=== PATIENT | female | born 1990 | race Caucasian/White ===

== ENCOUNTER → 2019-02-24 | Outpatient (CLI) | payer OTHER ==
[~2019-02-24] MED LIST: CEPH500 PO; IBUP600 PO
== END | disposition home or self-care (01) ==
LOC: LAB SHORT 16:45 → LAB 16:45
DX: O91.112 Abscess of breast associated with pregnancy, second trimester (principal)
CPT/HCPCS: 87070; 87075; 87205

== ENCOUNTER 2019-07-20 16:02 | Inpatient (IN) | payer OTHER ==
[~2019-07-20] VITALS: Ht 157.5 cm; Wt 70.0 kg
[~2019-07-20 16:02] MED LIST changes: +LIDO700A20 TOP; +PRENATAL TABLE1 EAC2 PO
[2019-07-20 18:17] LABS: BASOPHILS ABSOLUTE AUTO 0.02 K/mm3 (0.00-0.23); BASOPHILS PERCENT AUTO 0 % (0-2); EOSINOPHILS ABSOLUTE AUTO 0.15 K/mm3 (0.00-0.68); EOSINOPHILS PERCENT AUTO 1 % (0-6); Hematocrit 39.3 % (33.0-51.0); Hemoglobin 13.1 g/dL (11.5-16.0); IMMATURE GRAN ABSOLUTE AUTO 0.04 K/mm3 (0.00-0.10); IMMATURE GRAN PERCENT AUTO 0 % (0-1); LYMPHOCYTES ABSOLUTE AUTO 2.58 K/mm3 (0.84-5.20); LYMPHOCYTES PERCENT AUTO 23 % (21-46); MONOCYTES ABSOLUTE AUTO 0.75 K/mm3 (0.16-1.47); MONOCYTES PERCENT AUTO 7 % (4-13); Mean Corpuscular HGB Conc 33.3 g/dL (31.5-36.5); Mean Corpuscular Volume 90 fL (80-100); Mean Platelet Volume 11.7 fL (9.1-12.4); NEUTROPHILS ABSOLUTE AUTO 7.85 K/mm3 (1.96-9.15); NEUTROPHILS PERCENT AUTO 69 % (41-73); Platelet Count 247 K/mm3 (150-400); RDW Coefficient Variation 14.3 % (11.7-14.2); RDW Standard Deviation 47.2 fL (35.1-46.3); Red Blood Cell Count 4.36 M/mm3 (3.80-5.20); White Blood Cell Count 11.39 K/mm3 (4.00-11.30)
[2019-07-21 02:55] LABS: PCO2 Cord - Arterial 72.9 mmHg (40-50); pH Cord - Arterial 7.12 (7.28-7.35)
[2019-07-21 02:56] LABS: PO2 Cord - Arterial < 13 mmHg (16-20)
[2019-07-21 02:57] LABS: PCO2 Cord - Venous 71.8 mmHg (40-50); PO2 Cord - Venous < 13 mmHg (28-32); pH Umbilical Cord - Venous 7.13 (7.26-7.35)
[2019-07-21 13:51] LABS: BASOPHILS ABSOLUTE AUTO 0.03 K/mm3 (0.00-0.23); BASOPHILS PERCENT AUTO 0 % (0-2); EOSINOPHILS PERCENT AUTO 1 % (0-6); Hematocrit 36.5 % (33.0-51.0); Hemoglobin 12.3 g/dL (11.5-16.0); IMMATURE GRAN ABSOLUTE AUTO 0.05 K/mm3 (0.00-0.10); IMMATURE GRAN PERCENT AUTO 0 % (0-1); LYMPHOCYTES ABSOLUTE AUTO 2.47 K/mm3 (0.84-5.20); LYMPHOCYTES PERCENT AUTO 17 % (21-46); MONOCYTES ABSOLUTE AUTO 1.12 K/mm3 (0.16-1.47); MONOCYTES PERCENT AUTO 8 % (4-13); Mean Corpuscular HGB 30.4 pg (26.0-34.0); Mean Corpuscular HGB Conc 33.7 g/dL (31.5-36.5); Mean Corpuscular Volume 90 fL (80-100); Mean Platelet Volume 11.8 fL (9.1-12.4); NEUTROPHILS ABSOLUTE AUTO 10.82 K/mm3 (1.96-9.15); NEUTROPHILS PERCENT AUTO 74 % (41-73); Platelet Count 204 K/mm3 (150-400); RDW Coefficient Variation 14.2 % (11.7-14.2); RDW Standard Deviation 46.9 fL (35.1-46.3); Red Blood Cell Count 4.05 M/mm3 (3.80-5.20); White Blood Cell Count 14.59 K/mm3 (4.00-11.30)
[2019-07-22] MEDS ORDERED: IBUP800 PO (15:10)
== END 2019-07-22 18:35 | disposition home or self-care (01) | DRG 807 ==
LOC: OBS 16:02 → BC 16:45
PROVIDERS: ADMIT Family Medicine
PROC: 10D07Z6 Extraction of Products of Conception, Vacuum, Via Natural or Artificial Opening (ICD-10-PCS; principal; 2019-07-21)
PROC: 0KQM0ZZ Repair Perineum Muscle, Open Approach (ICD-10-PCS; 2019-07-21)
PROC: 3E033VJ Introduction of Other Hormone into Peripheral Vein, Percutaneous Approach (ICD-10-PCS; 2019-07-21)
DX: O76 Abnormality in fetal heart rate and rhythm complicating labor and delivery (principal); Z37.0 Single live birth; O70.1 Second degree perineal laceration during delivery; Z3A.39 39 weeks gestation of pregnancy
CPT/HCPCS: 36415; 51702; 82803; 85025; 86850; 86900; 86901; 87210; J0290; J2001; J3010; J7120

== ENCOUNTER 2020-10-07 14:27 | Observation (INO) | payer OTHER ==
[~2020-10-07] VITALS: Ht 157.5 cm; Wt 54.4 kg
[~2020-10-07 14:27] MED LIST changes: +IBUP800 PO
[2020-10-07 15:43] LABS: BASOPHILS ABSOLUTE AUTO 0.06 K/mm3 (0.00-0.23); BASOPHILS PERCENT AUTO 1 % (0-2); EOSINOPHILS ABSOLUTE AUTO 0.08 K/mm3 (0.00-0.68); EOSINOPHILS PERCENT AUTO 1 % (0-6); Hematocrit 45.1 % (33.0-51.0); Hemoglobin 15.1 g/dL (11.5-16.0); IMMATURE GRAN ABSOLUTE AUTO 0.06 K/mm3 (0.00-0.10); IMMATURE GRAN PERCENT AUTO 1 % (0-1); LYMPHOCYTES ABSOLUTE AUTO 3.25 K/mm3 (0.84-5.20); LYMPHOCYTES PERCENT AUTO 25 % (21-46); MONOCYTES ABSOLUTE AUTO 1.36 K/mm3 (0.16-1.47); MONOCYTES PERCENT AUTO 10 % (4-13); Mean Corpuscular HGB Conc 33.5 g/dL (31.5-36.5); Mean Corpuscular Volume 93 fL (80-100); Mean Platelet Volume 11.3 fL (9.1-12.4); NEUTROPHILS ABSOLUTE AUTO 8.47 K/mm3 (1.96-9.15); NEUTROPHILS PERCENT AUTO 64 % (41-73); Platelet Count 293 K/mm3 (150-400); RDW Coefficient Variation 12.6 % (11.7-14.2); RDW Standard Deviation 42.8 fL (35.1-46.3); Red Blood Cell Count 4.87 M/mm3 (3.80-5.20); White Blood Cell Count 13.28 K/mm3 (4.00-11.30)
[2020-10-07 15:57] LABS: Alanine Aminotransfer (ALT/SGP 19 U/L (12-78); Albumin, Blood 4.6 g/dL (3.4-5.0); Albumin/Globulin Ratio 1.2 (0.8-1.8); Alk Phos 49 U/L (50-136); Anion Gap 9 mmol/L (6-16); Aspartate Aminotrans (AST/SGOT 28 U/L (12-37); Bilirubin, Total 1.1 mg/dL (0.1-1.0); Blood Urea Nitrogen 18 mg/dL (8-24); CO2, Blood 24 mmol/L (21-32); Calcium, Blood 9.4 mg/dL (8.5-10.1); Chloride, Blood 103 mmol/L (98-108); Creatinine, Blood 0.69 mg/dL (0.40-1.00); Ethanol (Alcohol), Blood, Med <3 mg/dL; Globulin, Blood 3.7 g/dL (2.2-4.0); Glomerular Filtration Rate >60 (60-); Glucose, Blood 74 mg/dL (70-99); Potassium, Blood 3.7 mmol/L (3.5-5.5); Salicylate 2.6 mg/dL (2.8-20.0); Sodium, Blood 136 mmol/L (136-145); Total Protein, Blood 8.3 g/dL (6.4-8.2)
[2020-10-07 16:14] LABS: Acetaminophen, Random <2.0 ug/mL (10.0-30.0)
[2020-10-07 16:20] LABS: Source, Urine Clean Catch
[2020-10-07 16:24] LABS: Appearance, Urine Cloudy (Clear); Bilirubin, Urine Neg (Neg); Blood, Urine 3+ (Neg); Color, Urine Yellow (P-Yellow); Glucose Qualitative, Urine Neg (Neg); Ketones, Urine 4+ (Neg); Leukocyte Esterase, Urine 3+ (Neg); Nitrite, Urine Neg (Neg); Protein, Urine 2+ (Neg); Specific Gravity, Urine 1.025 (1.003-1.022); Urobilinogen, Urine 1+ (Normal)
[2020-10-07 16:43] LABS: SARS-Cov-2 (COVID-19) PCR, MMC NEGATIVE (NEGATIVE)
[2020-10-07 16:46] LABS: Bacteria Many /hpf; Squamous Epithelial Cells Many /hpf (Few)
[2020-10-07 17:01] LABS: U Amphetamine Screen Not Detected; U Barbituate Screen Not Detected; U Benzodiazapine Screen Not Detected; U Buprenorphine Screen Not Detected; U Cannabinoids Screen DETECTED; U Cocaine Screen Not Detected; U Methadone Screen Not Detected; U Methamphetamine Screen Not Detected; U Opiates Screen Not Detected; U Oxycodone Screen Not Detected; U Phencyclidine Screen Not Detected; U Propoxyphene Screen Not Detected
== END 2020-10-08 17:35 | disposition home or self-care (01) ==
LOC: ER 14:27 → EOR 14:28
PROVIDERS: Physician Assistant; ADMIT Emergency Medicine
DX: F29 Unspecified psychosis not due to a substance or known physiological condition (principal); Z20.822 Contact with and (suspected) exposure to COVID-19
CPT/HCPCS: 36415; 80053; 81001; 81025; 85025; 87086; 96372; 99285; A9270; G0378; G0480; J1200; J1630; J2060; Q3014; U0004

== ENCOUNTER 2022-02-10 10:13 | Emergency (ER) | payer OTHER ==
[~2022-02-10] VITALS: Ht 157.5 cm; Wt 68.0 kg
[~2022-02-10 10:13] MED LIST changes: +OLAN5 PO
[2022-02-10 10:35] LABS: Source, Urine Clean Catch
[2022-02-10 10:39] LABS: Appearance, Urine Hazy (Clear); Bilirubin, Urine Neg (Neg); Blood, Urine 4+ (Neg); Color, Urine Yellow (P-Yellow); Glucose Qualitative, Urine Neg (Neg); Ketones, Urine Neg (Neg); Leukocyte Esterase, Urine 1+ (Neg); Nitrite, Urine Neg (Neg); Protein, Urine 2+ (Neg); Urobilinogen, Urine NORM (Normal)
[2022-02-10 11:00] LABS: BASOPHILS ABSOLUTE AUTO 0.03 K/mm3 (0.00-0.23); BASOPHILS PERCENT AUTO 0 % (0-2); EOSINOPHILS ABSOLUTE AUTO 0.15 K/mm3 (0.00-0.68); EOSINOPHILS PERCENT AUTO 2 % (0-6); Hematocrit 44.6 % (33.0-51.0); Hemoglobin 14.8 g/dL (11.5-16.0); IMMATURE GRAN ABSOLUTE AUTO 0.03 K/mm3 (0.00-0.10); IMMATURE GRAN PERCENT AUTO 0 % (0-1); LYMPHOCYTES ABSOLUTE AUTO 2.42 K/mm3 (0.84-5.20); LYMPHOCYTES PERCENT AUTO 32 % (21-46); MONOCYTES PERCENT AUTO 9 % (4-13); Mean Corpuscular HGB 30.2 pg (26.0-34.0); Mean Corpuscular HGB Conc 33.2 g/dL (31.5-36.5); Mean Corpuscular Volume 91 fL (80-100); NEUTROPHILS ABSOLUTE AUTO 4.33 K/mm3 (1.96-9.15); NEUTROPHILS PERCENT AUTO 57 % (41-73); Platelet Count 268 K/mm3 (150-400); RDW Standard Deviation 43.6 fL (35.1-46.3); White Blood Cell Count 7.66 K/mm3 (4.00-11.30)
[2022-02-10 11:04] LABS: Bacteria Many /hpf; Red Blood Cells, Urine 0-2 /hpf (0-2); Squamous Epithelial Cells Many /hpf (Few)
[2022-02-10 11:05] LABS: Transitional Epithelial Cells Rare /hpf (0-Rare)
[2022-02-10 11:08] LABS: U Amphetamine Screen Not Detected; U Barbituate Screen Not Detected; U Benzodiazapine Screen Not Detected; U Buprenorphine Screen Not Detected; U Cannabinoids Screen DETECTED; U Cocaine Screen Not Detected; U Methadone Screen Not Detected; U Methamphetamine Screen Not Detected; U Opiates Screen Not Detected; U Oxycodone Screen Not Detected; U Phencyclidine Screen Not Detected; U Propoxyphene Screen Not Detected
[2022-02-10 11:17] LABS: Ethanol (Alcohol), Blood, Med <3 mg/dL; Salicylate 2.4 mg/dL (2.8-20.0)
[2022-02-10 11:19] LABS: Alanine Aminotransfer (ALT/SGP 27 U/L (12-78); Albumin/Globulin Ratio 1.1 (0.8-1.8); Alk Phos 45 U/L (50-136); Anion Gap 5 mmol/L (6-16); Aspartate Aminotrans (AST/SGOT 26 U/L (12-37); Bilirubin, Total 0.5 mg/dL (0.1-1.0); Blood Urea Nitrogen 15 mg/dL (8-24); Bun/Creatinine Ratio 25.4 (12.0-20.0); CO2, Blood 25 mmol/L (21-32); Calcium, Blood 8.9 mg/dL (8.5-10.1); Chloride, Blood 109 mmol/L (98-108); Creatinine, Blood 0.59 mg/dL (0.40-1.00); Globulin, Blood 3.5 g/dL (2.2-4.0); Glomerular Filtration Rate 124 (60-); Glucose, Blood 103 mg/dL (70-99); Potassium, Blood 4.2 mmol/L (3.5-5.5); Sodium, Blood 139 mmol/L (136-145); Total Protein, Blood 7.5 g/dL (6.4-8.2)
[2022-02-10 11:20] LABS: Acetaminophen, Random <2.0 ug/mL (10.0-30.0)
== END 2022-02-10 12:00 | disposition home or self-care (01) ==
LOC: ER 10:13
PROVIDERS: Emergency Medicine
DX: R45.851 Suicidal ideations (principal); T43.592A Poisoning by other antipsychotics and neuroleptics, intentional self-harm, initial encounter
CPT/HCPCS: 36415; 80053; 81001; 81025; 85025; 87086; 93005; 93010; G0480

== ENCOUNTER 2022-02-27 15:16 | Emergency (ER) | payer OTHER ==
[~2022-02-27] VITALS: Ht 157.5 cm; Wt 63.5 kg
[2022-02-27] MEDS ORDERED: RISP1 PO (17:03)
== END 2022-02-27 17:40 | disposition home or self-care (01) ==
LOC: ER 15:16
DX: F20.9 Schizophrenia, unspecified (principal); F17.290 Nicotine dependence, other tobacco product, uncomplicated; Z79.899 Other long term (current) drug therapy
CPT/HCPCS: 99283-25; Q3014

== ENCOUNTER 2022-03-30 10:17 | Emergency (ER) | payer OTHER ==
[~2022-03-30] VITALS: Ht 157.5 cm; Wt 65.8 kg
[~2022-03-30 10:17] MED LIST changes: +RISP1 PO
[2022-03-30 11:41] LABS: BASOPHILS ABSOLUTE AUTO 0.01 K/mm3 (0.00-0.23); BASOPHILS PERCENT AUTO 0 % (0-2); EOSINOPHILS ABSOLUTE AUTO 0.54 K/mm3 (0.00-0.68); EOSINOPHILS PERCENT AUTO 9 % (0-6); Hematocrit 42.5 % (33.0-51.0); Hemoglobin 14.1 g/dL (11.5-16.0); IMMATURE GRAN ABSOLUTE AUTO 0.01 K/mm3 (0.00-0.10); IMMATURE GRAN PERCENT AUTO 0 % (0-1); LYMPHOCYTES ABSOLUTE AUTO 1.28 K/mm3 (0.84-5.20); LYMPHOCYTES PERCENT AUTO 22 % (21-46); MONOCYTES ABSOLUTE AUTO 0.53 K/mm3 (0.16-1.47); MONOCYTES PERCENT AUTO 9 % (4-13); Mean Corpuscular HGB 29.9 pg (26.0-34.0); Mean Corpuscular HGB Conc 33.2 g/dL (31.5-36.5); Mean Corpuscular Volume 90 fL (80-100); Mean Platelet Volume 10.7 fL (9.1-12.4); NEUTROPHILS ABSOLUTE AUTO 3.55 K/mm3 (1.96-9.15); NEUTROPHILS PERCENT AUTO 60 % (41-73); Platelet Count 230 K/mm3 (150-400); RDW Coefficient Variation 12.6 % (11.7-14.2); RDW Standard Deviation 41.7 fL (35.1-46.3); Red Blood Cell Count 4.71 M/mm3 (3.80-5.20); White Blood Cell Count 5.92 K/mm3 (4.00-11.30)
[2022-03-30 11:57] LABS: Alanine Aminotransfer (ALT/SGP 17 U/L (12-78); Albumin, Blood 3.8 g/dL (3.4-5.0); Albumin/Globulin Ratio 1.1 (0.8-1.8); Alk Phos 46 U/L (50-136); Anion Gap 4 mmol/L (6-16); Aspartate Aminotrans (AST/SGOT 16 U/L (12-37); Bilirubin, Total 0.3 mg/dL (0.1-1.0); Blood Urea Nitrogen 7 mg/dL (8-24); Bun/Creatinine Ratio 12.5 (12.0-20.0); C-REACTIVE PROTEIN, EXT RANGE <0.290 mg/dL (0.000-0.300); CO2, Blood 29 mmol/L (21-32); Calcium, Blood 8.7 mg/dL (8.5-10.1); Chloride, Blood 104 mmol/L (98-108); Creatinine, Blood 0.56 mg/dL (0.40-1.00); Globulin, Blood 3.6 g/dL (2.2-4.0); Glomerular Filtration Rate 126 (60-); Glucose, Blood 98 mg/dL (70-99); Potassium, Blood 3.8 mmol/L (3.5-5.5); Sodium, Blood 137 mmol/L (136-145); Total Protein, Blood 7.4 g/dL (6.4-8.2)
[2022-03-30] MEDS ORDERED: Prednisone20 MG PO (22:51)
== END 2022-03-30 11:48 | disposition left against medical advice (07) ==
LOC: ER 10:17
PROVIDERS: Physician Assistant
DX: R21 Rash and other nonspecific skin eruption (principal); Z53.21 Procedure and treatment not carried out due to patient leaving prior to being seen by health care provider
CPT/HCPCS: 36415; 80053; 85025; 86140

== ENCOUNTER 2022-07-15 19:59 | Emergency (ER) | payer OTHER ==
[~2022-07-15] VITALS: Ht 157.5 cm; Wt 68.0 kg
[~2022-07-15 19:59] MED LIST changes: +Prednisone20 MG PO
[2022-07-15 20:04] VITALS: BP 126/87
== END 2022-07-15 20:25 | disposition left against medical advice (07) ==
LOC: ER 19:59
DX: R20.0 Anesthesia of skin (principal); Z53.21 Procedure and treatment not carried out due to patient leaving prior to being seen by health care provider
CPT/HCPCS: 99282

== ENCOUNTER → 2022-09-12 | Outpatient (CLI) | payer OTHER ==
[2022-09-12 19:47] LABS: BASOPHILS ABSOLUTE AUTO 0.03 K/mm3 (0.00-0.23); BASOPHILS PERCENT AUTO 0 % (0-2); EOSINOPHILS ABSOLUTE AUTO 0.25 K/mm3 (0.00-0.68); EOSINOPHILS PERCENT AUTO 3 % (0-6); Hematocrit 42.8 % (33.0-51.0); Hemoglobin 13.9 g/dL (11.5-16.0); IMMATURE GRAN ABSOLUTE AUTO 0.06 K/mm3 (0.00-0.10); IMMATURE GRAN PERCENT AUTO 1 % (0-1); LYMPHOCYTES PERCENT AUTO 28 % (21-46); MONOCYTES ABSOLUTE AUTO 0.73 K/mm3 (0.16-1.47); MONOCYTES PERCENT AUTO 8 % (4-13); Mean Corpuscular HGB 29.2 pg (26.0-34.0); Mean Corpuscular HGB Conc 32.5 g/dL (31.5-36.5); Mean Corpuscular Volume 90 fL (80-100); Mean Platelet Volume 10.9 fL (9.1-12.4); NEUTROPHILS ABSOLUTE AUTO 5.28 K/mm3 (1.96-9.15); NEUTROPHILS PERCENT AUTO 60 % (41-73); Platelet Count 353 K/mm3 (150-400); RDW Coefficient Variation 12.5 % (11.7-14.2); RDW Standard Deviation 41.3 fL (35.1-46.3); Red Blood Cell Count 4.76 M/mm3 (3.80-5.20); White Blood Cell Count 8.85 K/mm3 (4.00-11.30)
[2022-09-12 20:12] LABS: Alanine Aminotransfer (ALT/SGP 20 U/L (12-78); Albumin, Blood 4.1 g/dL (3.4-5.0); Albumin/Globulin Ratio 1.1 (0.8-1.8); Alk Phos 51 U/L (50-136); Anion Gap 9 mmol/L (6-16); Aspartate Aminotrans (AST/SGOT 17 U/L (12-37); Bilirubin, Total 0.5 mg/dL (0.1-1.0); Blood Urea Nitrogen 10 mg/dL (8-24); Bun/Creatinine Ratio 13.1 (12.0-20.0); CHOL/HDL RATIO 3.8; CO2, Blood 25 mmol/L (21-32); Calcium, Blood 9.6 mg/dL (8.5-10.1); Chloride, Blood 104 mmol/L (98-108); Cholesterol 199 mg/dL (50-200); Creatinine, Blood 0.76 mg/dL (0.40-1.00); Free Thyroxine 1.04 ng/dL (0.70-1.60); Globulin, Blood 3.8 g/dL (2.2-4.0); Glomerular Filtration Rate 107 (60-); Glucose, Blood 87 mg/dL (70-99); HDL Cholesterol 53 mg/dL (>39); LDL/HDL RATIO 2.2; Low Density Lipoprotein Chol 118 mg/dL (0-110); Sodium, Blood 138 mmol/L (136-145); Total Protein, Blood 7.9 g/dL (6.4-8.2); Triglycerides 139 mg/dL (30-140); Triiodothyronine, Free 2.68 pg/mL (2.18-3.98); Very Low Density Lipoprot Chol 27 mg/dL (6-28)
== END | disposition home or self-care (01) ==
LOC: LAB SHORT 16:55 → LAB 16:55
PROVIDERS: Family Medicine
DX: E66.9 Obesity, unspecified (principal)
CPT/HCPCS: 80053; 80061; 82306; 84439; 84443; 84481; 85025

== ENCOUNTER → 2024-06-18 | Outpatient (CLI) | payer OTHER ==
[2024-06-18 14:08] LABS: Source, Urine Clean Catch
[2024-06-18 16:48] LABS: Bacteria Many /hpf; Calcium Oxalate Crystals Mod /hpf; Hyaline Casts 0-2 /lpf (0-2); Mucus Light (0-Heavy); Red Blood Cells, Urine 0-2 /hpf (0-2); Squamous Epithelial Cells Many /hpf (Few)
[2024-06-18 17:06] LABS: U Amphetamine Screen Not Detected; U Barbituate Screen Not Detected; U Benzodiazapine Screen Not Detected; U Buprenorphine Screen Not Detected; U Cannabinoids Screen DETECTED; U Cocaine Screen Not Detected; U Methadone Screen Not Detected; U Methamphetamine Screen Not Detected; U Opiates Screen Not Detected; U Oxycodone Screen Not Detected; U Phencyclidine Screen Not Detected
[2024-06-18 17:13] LABS: Bacterial Vaginosis PCR Negative (NEGATIVE); Candida glabrata-krusei, PCR NOT DETECTED (NOT DETECT)
[2024-06-18 17:46] LABS: Chlamydia Trachomatis Vaginal NOT DETECTED (NOT DETECT); Neisseria Gonorrhoea Vaginal NOT DETECTED (NOT DETECT)
[2024-06-18 18:01] LABS: Candida Group, PCR DETECTED (NOT DETECT)
[2024-06-21 07:09] LABS: 11-NOR-9-CARBOXY-THC,URN,QUANT >500 ng/mL
== END | disposition home or self-care (01) ==
LOC: LAB 14:03 → LAB SHORT 14:03
PROVIDERS: Advanced Practice Midwife
DX: O23.591 Infection of other part of genital tract in pregnancy, first trimester (principal)
CPT/HCPCS: 81015; 81515; 87086; 87491; 87591; G0480

== ENCOUNTER 2024-07-17 09:58 | Emergency (ER) | payer OTHER ==
[~2024-07-17] VITALS: Ht 157.5 cm; Wt 70.3 kg
[2024-07-17] MEDS ORDERED: Acetaminophen 500 MG Tab PO ONE (10:55)
[2024-07-17] MEDS ORDERED: Metoclopramide HCl 10 MG Tab PO ONE (10:55)
[2024-07-17] MEDS ORDERED: METO10 PO (13:07)
[2024-07-17 13:45] VITALS: BP 120/62
== END 2024-07-17 13:54 | disposition home or self-care (01) ==
LOC: ER 09:58
DX: O9A.212 Injury, poisoning and certain other consequences of external causes complicating pregnancy, second trimester (principal); Z3A.16 16 weeks gestation of pregnancy; Z88.8 Allergy status to other drugs, medicaments and biological substances; Z79.899 Other long term (current) drug therapy; F17.290 Nicotine dependence, other tobacco product, uncomplicated; W22.8XXA Striking against or struck by other objects, initial encounter
CPT/HCPCS: 70260; 99284-25; A9270

== ENCOUNTER → 2024-10-20 | Outpatient (CLI) | payer OTHER ==
[~2024-10-20] MED LIST changes: +METO10 PO
[2024-10-20 17:59] LABS: BASOPHILS ABSOLUTE AUTO 0.03 K/mm3 (0.00-0.23); BASOPHILS PERCENT AUTO 0 % (0-2); EOSINOPHILS ABSOLUTE AUTO 0.14 K/mm3 (0.00-0.68); EOSINOPHILS PERCENT AUTO 1 % (0-6); Hematocrit 35.5 % (33.0-51.0); Hemoglobin 11.7 g/dL (11.5-16.0); IMMATURE GRAN ABSOLUTE AUTO 0.09 K/mm3 (0.00-0.10); IMMATURE GRAN PERCENT AUTO 1 % (0-1); LYMPHOCYTES ABSOLUTE AUTO 2.38 K/mm3 (0.84-5.20); LYMPHOCYTES PERCENT AUTO 22 % (21-46); MONOCYTES ABSOLUTE AUTO 0.73 K/mm3 (0.16-1.47); MONOCYTES PERCENT AUTO 7 % (4-13); Mean Corpuscular HGB Conc 33.0 g/dL (31.5-36.5); Mean Corpuscular Volume 92 fL (80-100); NEUTROPHILS ABSOLUTE AUTO 7.49 K/mm3 (1.96-9.15); NEUTROPHILS PERCENT AUTO 69 % (41-73); NRBC ABSOLUTE 0.00 K/mm3 (0.00-0.02); NRBC Auto 0.0 /100 WBC (0.0-0.2); Platelet Count 276 K/mm3 (150-400); RDW Coefficient Variation 13.1 % (11.7-14.2); RDW Standard Deviation 43.6 fL (35.1-46.3)
[2024-10-21 18:23] LABS: HEPATITIS C AB CIA INTERP Negative (Negative); HEPATITIS C ANTIBODY CIA INDEX 0.02 IV
[2024-10-21 20:50] LABS: HIV 1,2 COMBO ANTIGEN/ANTIBODY Negative (Negative)
== END ==
LOC: LAB 13:23 → LAB SHORT 13:23
PROVIDERS: Advanced Practice Midwife
DX: Z34.83 Encounter for supervision of other normal pregnancy, third trimester (principal)
CPT/HCPCS: 84443; 86803; 87340; 87389

== ENCOUNTER 2025-01-02 07:18 | Inpatient (IN) | payer OTHER ==
[~2025-01-02] VITALS: Ht 157.5 cm; Wt 68.2 kg
[2025-01-02] VITALS (34 sets, daily range): BP systolic 99–165; BP diastolic 56–130
[2025-01-02] MEDS ORDERED: Carboprost Tromethamine 250 MCG/ML 1ML Amp IM PRN (07:25)
[2025-01-02] MEDS ORDERED: Tranexamic Acid 100 ML IV SCH (07:25)
[2025-01-02] MEDS ORDERED: Methylergonovine Maleate 0.2MG / ML 1ML Amp IM PRN ×2 (07:25→15:40)
[2025-01-02] MEDS ORDERED: OXYTOCIN/RINGER'S LACTATE 500 ML IV SCH ×2 (07:25→15:45)
[2025-01-02] MEDS ORDERED: OXYTOCIN/RINGER'S LACTATE 500 ML IV PRN (07:25)
[2025-01-02] MEDS ORDERED: Oxytocin 10 Unit / ML Vial IM PRN (07:25)
[2025-01-02] MEDS ORDERED: ePHEDrine Sulfate 50 MG/ML 1ML Injection XX PRN (07:30)
[2025-01-02] MEDS ORDERED: FentaNYL 2mcg/ml-Bup 0.1% Epd 250 ML EPI PRN (07:30)
[2025-01-02] MEDS ORDERED: FentaNYL Citrate 50 MCG/ML 2 ML Injection IV PRN (07:30)
[2025-01-02] MEDS ORDERED: Ondansetron HCl 2 MG / ML 2ML Vial IV PRN (07:30)
[2025-01-02 08:01] LABS: BASOPHILS ABSOLUTE AUTO 0.02 K/mm3 (0.00-0.23); BASOPHILS PERCENT AUTO 0 % (0-2); EOSINOPHILS ABSOLUTE AUTO 0.08 K/mm3 (0.00-0.68); EOSINOPHILS PERCENT AUTO 1 % (0-6); Hematocrit 37.0 % (33.0-51.0); Hemoglobin 12.5 g/dL (11.5-16.0); IMMATURE GRAN ABSOLUTE AUTO 0.02 K/mm3 (0.00-0.10); IMMATURE GRAN PERCENT AUTO 0 % (0-1); LYMPHOCYTES ABSOLUTE AUTO 1.76 K/mm3 (0.84-5.20); LYMPHOCYTES PERCENT AUTO 23 % (21-46); MONOCYTES ABSOLUTE AUTO 0.52 K/mm3 (0.16-1.47); MONOCYTES PERCENT AUTO 7 % (4-13); Mean Corpuscular HGB Conc 33.8 g/dL (31.5-36.5); Mean Corpuscular Volume 85 fL (80-100); NEUTROPHILS ABSOLUTE AUTO 5.13 K/mm3 (1.96-9.15); NEUTROPHILS PERCENT AUTO 68 % (41-73); NRBC ABSOLUTE 0.00 K/mm3 (0.00-0.02); NRBC Auto 0.0 /100 WBC (0.0-0.2); Platelet Count 253 K/mm3 (150-400); RDW Coefficient Variation 12.8 % (11.7-14.2); RDW Standard Deviation 39.8 fL (35.1-46.3)
[2025-01-02] MEDS ORDERED: PRENATAL 19 TA1 EAC3 PO (08:06)
[2025-01-02] MEDS ORDERED: Witch Hazel/Glycerin PADS TOP PRN (15:40)
[2025-01-02] MEDS ORDERED: FLU VACC TS2025-26(6MOS UP)/PF 45 MCG/0.5 ML SYRINGE IM SCH (15:40)
[2025-01-02] MEDS ORDERED: OxyCODONE 5 mg/Acetamin 325 mg TABLET PO PRN (15:45)
[2025-01-02] MEDS ORDERED: Ketorolac Tromethamine 30mg Vial IV PRN (15:45)
[2025-01-02] MEDS ORDERED: Benzocaine Topical Anesthetic Spray 60GM TOP PRN (15:50)
--- NOTE | 2025-01-02 15:52 | NUR ---
154 INACCURATE BLOOD PRESSURE DUE TO MATERAL MOVEMENT DURING READING
--- NOTE | 2025-01-02 19:58 | NUR ---
1954- RN phone call to ZACKARY Watts with concerns with pt having a large softball/grapefruit sized lump on her left upper quadrant under her ribs. The lump is hard when palpated and can be seen protruding out. Pt states it is not painful at this time. RN expresses her concerns for this lump being present. Pt states that she thought it was a hernia and has had it for a couple weeks and even called [facility] and Dr Jalloh was notified but never got looked at. ZACKARY Watts is unsure what this lump could be and states she will try and contact Dr. anderson to get her opinion or try and send a resident to come look at it.
[2025-01-03 00:41] VITALS: BP 121/72
[2025-01-03 05:10] VITALS: BP 116/72
[2025-01-03 08:32] VITALS: BP 123/67
[2025-01-03] MEDS ORDERED: Prenatal Vit/FE Fumarate/FA 1 Tab PO SCH (09:00)
--- NOTE | 2025-01-03 09:26 | NUR ---
0907 GUERO NOTIFIED OF EPDS SCORE OF 17.
[2025-01-03 13:41] VITALS: BP 130/73
[2025-01-03] MEDS ORDERED: MOTRIN IB200 MG PO (14:57)
[2025-01-03 16:33] VITALS: BP 114/77
== END 2025-01-03 16:53 | disposition home or self-care (01) | DRG 806 ==
LOC: OBS 07:18 → BC 07:21 → OBS 07:27 → BC 21:18
PROVIDERS: ADMIT Advanced Practice Midwife
PROC: 10E0XZZ Delivery of Products of Conception, External Approach (ICD-10-PCS; principal; 2025-01-02)
PROC: 10907ZC Drainage of Amniotic Fluid, Therapeutic from Products of Conception, Via Natural or Artificial Opening (ICD-10-PCS; 2025-01-02)
PROC: 0HQ9XZZ Repair Perineum Skin, External Approach (ICD-10-PCS; 2025-01-02)
PROC: 3E0R3BZ Introduction of Anesthetic Agent into Spinal Canal, Percutaneous Approach (ICD-10-PCS; 2025-01-02)
PROC: 00HU33Z Insertion of Infusion Device into Spinal Canal, Percutaneous Approach (ICD-10-PCS; 2025-01-02)
DX: O48.0 Post-term pregnancy (principal); O99.324 Drug use complicating childbirth; Z37.0 Single live birth; Z59.811 Housing instability, housed, with risk of homelessness; Z3A.40 40 weeks gestation of pregnancy; F12.90 Cannabis use, unspecified, uncomplicated; D25.9 Leiomyoma of uterus, unspecified; O70.0 First degree perineal laceration during delivery; O65.5 Obstructed labor due to abnormality of maternal pelvic organs; Z39.1 Encounter for care and examination of lactating mother; Z13.32 Encounter for screening for maternal depression; Z28.21 Immunization not carried out because of patient refusal
CPT/HCPCS: 36415; 51702; 76857; 85025; 86850; 86900; 86901; A9270; J1885; J2405; J2590; J7120

== ENCOUNTER 2025-02-25 06:28 | Emergency (ER) | payer OTHER ==
[~2025-02-25] VITALS: Ht 157.5 cm; Wt 58.1 kg
[~2025-02-25 06:28] MED LIST changes: +MOTRIN IB200 MG PO; +PRENATAL 19 TA1 EAC3 PO
[2025-02-25 06:34] VITALS: BP 112/82
== END 2025-02-25 06:53 | disposition home or self-care (01) ==
LOC: ER 06:28
DX: F20.9 Schizophrenia, unspecified (principal); F22 Delusional disorders
CPT/HCPCS: 99282

== ENCOUNTER 2025-03-01 18:08 | Observation (INO) | payer OTHER ==
[~2025-03-01] VITALS: Ht 157.5 cm; Wt 56.7 kg
[2025-03-01 18:58] LABS: Source, Urine Voided
[2025-03-01 19:04] LABS: Bilirubin, Urine Neg (Neg); Glucose Qualitative, Urine Neg (Neg); Ketones, Urine Neg (Neg); Leukocyte Esterase, Urine Neg (Neg); Protein, Urine Neg (Neg); Specific Gravity, Urine 1.005 (1.003-1.022); Urobilinogen, Urine NORM (Normal)
[2025-03-01 19:12] LABS: BASOPHILS ABSOLUTE AUTO 0.05 K/mm3 (0.00-0.23); BASOPHILS PERCENT AUTO 0 % (0-2); EOSINOPHILS ABSOLUTE AUTO 0.12 K/mm3 (0.00-0.68); EOSINOPHILS PERCENT AUTO 1 % (0-6); Hematocrit 41.1 % (33.0-51.0); Hemoglobin 13.6 g/dL (11.5-16.0); IMMATURE GRAN ABSOLUTE AUTO 0.03 K/mm3 (0.00-0.10); IMMATURE GRAN PERCENT AUTO 0 % (0-1); LYMPHOCYTES ABSOLUTE AUTO 3.06 K/mm3 (0.84-5.20); LYMPHOCYTES PERCENT AUTO 23 % (21-46); MONOCYTES ABSOLUTE AUTO 1.32 K/mm3 (0.16-1.47); MONOCYTES PERCENT AUTO 10 % (4-13); Mean Corpuscular HGB Conc 33.1 g/dL (31.5-36.5); Mean Corpuscular Volume 86 fL (80-100); NEUTROPHILS ABSOLUTE AUTO 9.03 K/mm3 (1.96-9.15); NEUTROPHILS PERCENT AUTO 66 % (41-73); NRBC ABSOLUTE 0.00 K/mm3 (0.00-0.02); NRBC Auto 0.0 /100 WBC (0.0-0.2); Platelet Count 368 K/mm3 (150-400); RDW Coefficient Variation 14.6 % (11.7-14.2); RDW Standard Deviation 47.0 fL (35.1-46.3)
[2025-03-01 19:21] VITALS: BP 108/73
[2025-03-01 19:21] LABS: Color, Urine Pale Yellow (P-Yellow)
[2025-03-01 19:22] LABS: Red Blood Cells, Urine 0-2 /hpf (0-2); White Blood Cells, Urine 0-2 /hpf (0-5)
[2025-03-01 19:30] LABS: Ethanol (Alcohol), Blood, Med <3 mg/dL; Salicylate 2.9 mg/dL (2.8-20.0)
[2025-03-01 19:34] LABS: Alanine Aminotransfer (ALT/SGP 28 U/L (12-78); Albumin, Blood 4.4 g/dL (3.4-5.0); Albumin/Globulin Ratio 1.4 (0.8-1.8); Anion Gap 10 mmol/L (3-11); Aspartate Aminotrans (AST/SGOT 57 U/L (12-37); Bilirubin, Total 1.0 mg/dL (0.1-1.0); Blood Urea Nitrogen 8 mg/dL (8-24); CO2, Blood 26 mmol/L (21-32); Calcium, Blood 9.8 mg/dL (8.5-10.1); Chloride, Blood 104 mmol/L (98-108); Creatinine, Blood 0.69 mg/dL (0.40-1.00); Globulin, Blood 3.2 g/dL (2.2-4.0); Glucose, Blood 86 mg/dL (70-99); Potassium, Blood 4.0 mmol/L (3.5-5.5); Sodium, Blood 136 mmol/L (136-145); Total Protein, Blood 7.6 g/dL (6.4-8.2)
[2025-03-01 19:35] LABS: Acetaminophen, Random <2.0 ug/mL (10.0-30.0)
[2025-03-01] MEDS ORDERED: Diazepam 5 MG / ML 2ML SYR IM PRN (20:20)
[2025-03-01 22:25] LABS: U Amphetamine Screen Not Detected; U Barbiturate Screen Not Detected; U Benzodiazapine Screen Not Detected; U Buprenorphine Screen Not Detected; U Cannabinoids Screen DETECTED; U Cocaine Screen Not Detected; U Methadone Screen Not Detected; U Methamphetamine Screen Not Detected; U Opiates Screen Not Detected; U Oxycodone Screen Not Detected; U Phencyclidine Screen Not Detected
[2025-03-02] MEDS ORDERED: Haloperidol Lactate Inj. 5 MG/ML Injection IM ONE ×2 (01:10→06:50)
[2025-03-02] MEDS ORDERED: LORazepam 2 MG/ML 1ML Injection IM ONE (01:10)
[2025-03-02] MEDS ORDERED: LORazepam 2 MG/ML 1ML Injection IM PRN (06:50)
== END 2025-03-02 15:55 | disposition other institution (70) ==
LOC: ER 18:08 → EOR 18:09 → EDBEDREQ 03-02 15:18 → EDBEDREQSVC 03-02 15:18 → EDBEDREQ 03-02 15:23 → EOR 03-02 15:55
PROVIDERS: ADMIT Emergency Medicine
DX: F20.9 Schizophrenia, unspecified (principal); R45.850 Homicidal ideations; F17.290 Nicotine dependence, other tobacco product, uncomplicated; Z88.8 Allergy status to other drugs, medicaments and biological substances
CPT/HCPCS: 71045; 80053; 80320; 81001; 81025; 84484; 85025; 93005; 93010; 96372; 99285-25; G0378; G0480; J1630; J2060; J3360

== ENCOUNTER 2025-03-02 14:48 | Inpatient (IN) | payer OTHER ==
[~2025-03-02] VITALS: Ht 157.5 cm; Wt 53.8 kg
[2025-03-02 16:16] VITALS: BP 116/73
[2025-03-02 16:27] VITALS: BP 116/73
[2025-03-02] MEDS ORDERED: Aluminum Hydroxide 320MG/5ML 473 ML PO PRN (16:35)
[2025-03-02] MEDS ORDERED: Ondansetron 4 MG SoluTab MM PRN (16:40)
[2025-03-02] MEDS ORDERED: Polyethylene Glycol 3350 17 gm PO PRN (16:40)
[2025-03-02] MEDS ORDERED: LORazepam 2 MG/ML 1ML Injection IM PRN (16:40)
[2025-03-02] MEDS ORDERED: FLU VACC TS2025-26(6MOS UP)/PF 45 MCG/0.5 ML SYRINGE IM SCH (16:45)
[2025-03-02] MEDS ORDERED: Haloperidol Lactate Inj. 5 MG/ML Injection IM PRN (16:45)
[2025-03-02] MEDS ORDERED: DiphenhydrAMINE HCl 50 MG/ML 1ML Vial IM PRN (16:45)
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
--- NOTE | 2025-03-03 00:11 | NUR ---
MID-SHIFT SUMMARY 34 YEAR-OLD FEMALE PRESENTS WELL GROOMED. SHE IS ALERT AND ORIENTED. SHE SPEAKS IN A CLEAR VOICE AND IN AN APPROPRIATE VOLUME. SHE IS ABLE TO MAKE AND KEEP EYE CONTACT DURING CONVERSATIONS. AT THE TIME OF HER ASSESSMENT, SHE DESCRIBED HER MOOD "YOU'RE KEEPING ME HERE AGAINST MY WILL." SHE IS AN INVOLUTARY ADMISSION FROM [facility] ED. SHE CONTINUES TO SHOW LITTLE TO NO INSIGHT INTO HER SITUATION OR MENTAL ILLNESS. HER AFFECT IS LABILE, RANGING FROM CALM AND COOPERATIVE TO NEAR PANIC ABOUT NEEDING TO LEAVE FOR HER [place] COURT DATE. THE NURSE AT THE ED VERIFIED THAT THERE ARE NO COURT DATES FOR HER TO ATTEND IN THE NEXT WEEK. SHE ALSO DENIED SI, HI, AND AVTH AT THAT TIME. SHE REFUSED TO ATTEND SNACK OR DAY ROOM. SHE OPTED TO STAY IN BED. CURRENTLY, NO PM MEDICATIONS HAVE BEEN PRESCRIBED. SHE DID NOT RECEIVE ANY PRN MEDICATIONS. SHE CONTINUES TO BE MONITORED EVERY 15 MINUTES FOR WELLNESS AND SAFETY.
--- NOTE | 2025-03-03 00:53 | NUR ---
Assumed care of patient at 0055. Patient currently sleeping. Respirations verified. Will continue close monitoring every 15 minutes for safety and wellness per unit protocol.
--- NOTE | 2025-03-03 06:03 | NUR ---
PATIENT WAS ABLE TO SLEEP UNTIL APPROXIMATELY 30 WHEN SHE CAME OUT OF ROOM DISTRAUGHT AND YELLING ABOUT MISSING HER COURT DATE (ON SUNDAY). aFTER LOOKING IN THE ER RECORD, THE DATE OF HER COURT APPOINTMENT IS March ACCORDING TO THE COURT. PATIENT THEN GOT VERY UPSET YELLING AT THE STAFF. WHEN A COMBINATION OF BENEDRYL, ATIVAN AND HALDOL WERE OFFERED TO THE PATIENT, SHE REFUSED AND ONLY TOOK THE BENEDRYL. PATIENT AGREED TO KEEP HER VOICE DOWN ESPECIALLY WHILE OTHERS WERE SLEEPING. WILL CONTINUE CLOSE MONITORING FOR SAFETY AND COMFORT EVERY 15 MINUTES PER UNIT PROTOCOL
[2025-03-03 07:58] LABS: CHOL/HDL RATIO 2.7; Cholesterol 190 mg/dL (50-200); HDL Cholesterol 71 mg/dL (>39); LDL/HDL RATIO 1.5; Low Density Lipoprotein Chol 107 mg/dL (0-110); Triglycerides 58 mg/dL (30-140); Very Low Density Lipoprot Chol 11 mg/dL (6-28)
[2025-03-03] MEDS ORDERED: Multivitamins 1 Tab PO SCH (09:00)
--- NOTE | 2025-03-03 09:17 | NUR ---
IMPORTANT INFORMATION PATIENT HAS COURT DATE = 03/10/25. HER CHILD INSTITUTIONAL RESEARCH COORDINATOR IS ANDREA SORIANO AND SHE CAN BE REACHD AT .
--- NOTE | 2025-03-03 18:37 | NUR ---
PRN MEDICATION ADMINISTRATION PT AGITATED, RAISING VOICE AT STAFF, AND MAKING OBSCENE GESTURES AT STAFF. SECURITY CALLED AND PT RECEIVED INJECTION OF BENEDRYL, HALDOL, AND ATIVAN. MASS SCORE COMPLETED. PLEASE SEE MASS DOCUMENTATION.
[2025-03-03] MEDS ORDERED: Lactobacil 2-S.Thermo-Bifido 1 1 Cap PO SCH (21:00)
--- NOTE | 2025-03-04 04:30 | NUR ---
SHIFT SUMMARY: PATIENT IS A 34 YEAR OLD FEMALE ADMITTED TO THE [facility] WITH PSYCHOSIS ON 03/02/25. THE SHIFT WAS CHANGING AND REPORT NEARLY STARTED, PATIENT BEGAN TO ESCALATE, SHOUTING OBSCENITIES AT STAFF REGARDING BEING "HELD PRISONER" AND HOW SHE IS GOING TO "PRESS CHARGES AND SCOTTY YOU ALL!". PATIENT WAS UNABLE TO CALM SELF AND STAFF WERE UNABLE TO HELP HER CALM, ALTHOUGH DISTRACTION, MOTIVATIONAL INTERVIEWING AND COLLABORATIVE PROBLEM SOLVING TECHNIQUES WERE ATTEMPTED. PATIENT WAS THEN GIVEN INJECTIONS OF HALDOL AND ATIVAN AND OF BENADRYL. SHE WENT TO HER ROOM BEFORE THE INJECTIONS, AND SECURITY ESCORTED STAFF INTO THE ROOM TO ENSURE SAFETY FOR ALL. PATIENT WAS ABLE TO ACCEPT MEDICATION WITHOUT STAFF GOING HANDS ON AND BEGAN TO SETTLE ALMOST IMMEDIATELY. SHE DID TAKE HER RISPERDAL AT THE BEGINNING OF NOC SHIFT, RATHER THAN AT 2100, DUE TO BECOMING SLEEPY AND WANTING TO "GO TO BED". SHE WAS UNABLE TO PARTICIPATE IN ASSESSMENT, ALTHOUGH AFTER MEDICATIONS, SHE DID NOT PRESENT HAVING HI OR SI, OR THOUGHTS OF SELF HARMING. RN WENT TO ROOM TO CHECK ON HER AND SEE IF SHE WANTED HER SCHEDULED TRAZODONE AND MELATONIN. SHE WAS UNABLE TO BE AWAKENED, SO THIS RN MARKED THE MEDICATIONS NOT TAKING DUE TO PATIENT SLEEPING. THE INJECTIONS WERE EFFECTIVE IN HELPING PATIENT CALM, AND SHE THEN RESTED FOR THE REMAINDER OF THE SHIFT, RESPIRATIONS CONFIRMED. SHE DID NOT EXPRESS ANY NEEDS OR CONCERNS AFTER THAT TIME. CONTINUING TO MONITOR FOR SAFETY WITH Q15 MINUTE CHECKS.
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
[2025-03-04 07:41] VITALS: BP 110/70
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
--- NOTE | 2025-03-05 04:27 | NUR ---
SHIFT SUMMARY: PATIENT IS A 34 YEAR OLD FEMALE ADMITTED TO THE [facility] ON 03/02/25 FOR PSYCHOSIS. SHE PRESENTED WELL GROOMED, A AND O X4, SPEAKING IN A MOSTLY MODERATE VOLUME, WITH SOME RAISING OF VOICE IF IRRITATED OR UPSET. SHE MAKES APPROPRIATE EYE CONTACT. SHE DESCRIBED HER MOOD "SAD" AND STATED, "I MISS MY CHILDREN, EVERYONE IS AGAINST ME". DESPITE BEING UPSET, SHE STATED THAT SHE DID NOT HAVE SI, HI, OR AVTH. SHE DECLINED OFFER OF SNACK AT 2030, BUT DID COMPLETE WRAP UP GROUP PAPER. SHE WAS COMPLIANT WITH EVENING MEDICATION ADMINISTRATION. SHE DID NOT REQUEST ANY PRN MEDICATION. EDUCATION WAS GIVEN REGARDING HER SCHEDULED MEDICATION. SHE WENT TO BED AFTER TAKING HER MEDICATION, AND WAS NOTED TO BE RESTING QUIETLY WITH EYES CLOSED AND RESPIRATIONS CONFIRMED FOR THE REMAINDER OF THE SHIFT.
--- NOTE | 2025-03-05 08:57 | NUR ---
CPS WORKER PHONE MUMBER- [phone] STACIA WAGNER
--- NOTE | 2025-03-05 12:03 | NUR ---
UPDATE PT BECAME AGITATED AFTER PHONECALL AND ASKED FOR MEDICATIONS TO "OD" ON, DR GONZALES AWARE. DID NOT ANSWER QUESTIONS AFTER INITIAL STATEMENT. PT REASSESSED AND DENIES ANY SUICIDAL THOUGHTS, "I WAS JUST SAD FROM THE PHONECALL".
--- NOTE | 2025-03-05 17:26 | NUR ---
SHIFT SUMMARY PT DENIES SI, HI, AVTH. MOOD IS LABILE. PT GIVEN HYDROXYZINE PER EMAR FOR ANXIETY (SEE PREVIOUS NOTE). HAS ATTENDED GROUPS, MEALS, AND IS INTERACTING W/ PEERS AND STAFF. IS CURRENTLY IN DAYROOM READING A BOOK. PER KALLIE WHYTE, PT BECAME DISTRAUGHT AFTER CONVERSATION W/ PUMP AND STILL OPERATOR, BUT MASS SCORE IS 0~ AT THIS TIME. NO OTHER ACUTE EVENTS.
[2025-03-05 19:11] VITALS: BP 95/55
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
--- NOTE | 2025-03-06 04:46 | NUR ---
SHIFT SUMMARY: PATIENT IS A 34 YEAR OLD FEMALE ADMITTED TO THE [facility] ON 03/02/25 FOR PSYCHOSIS. SHE PRESENTED WELL GROOMED, A AND O X4, AND SPOKE MOSTLY IN A MODERATE AND PLEASANT VOICE. SHE MADE APPROPRIATE EYE CONTACT. SHE DESCRIBED HER MOOD "BETTER. I'M WORKING ON GETTING OUT OF HERE SO I CAN TAKE CARE OF THINGS IN MY LIFE." SHE DENIED SI, HI AND AVTH. SHE WENT TO BED BEFORE SNACK AND DID NOT PARTICIPATE, BUT DID WRITE ON HER WRAP UP GROUP PAPER. SHE WAS COMPLIANT WITH EVENING MEDICATION ADMINISTRATION. SHE GOT UP SHORTLY AFTER 2200, STATING THAT SHE WAS "ANGRY AT THAT MAN WHO KEEPS COMING AROUND AND STARING AT ME". IT WAS EXPLAINED THAT THE UNIT HAS Q15 MINUTE AROUND THE CLOCK CHECKS THAT ARE MANDATORY AND NOT MEANT TO BE INVASIVE, BUT RATHER TO PROMOTE SAFETY. PATIENT CONTINUED TO PRESENT UPSET, EVIDENCED BY TENSE BODY, RAISED VOICE AND CHOICE OF INAPPROPRIATE WORDS. RN WAS ABLE TO TALK WITH PATIENT AND PATIENT STATED THAT SHE COULD "FEEL BETTER" IF SHE COULD RELAX. SHE REQUESTED AND WAS GIVEN NICORETTE GUM, WHICH WAS EFFECTIVE IN CALMING HER TO BASELINE LEVEL. SHE THEN STATED THAT SHE WAS ANXIOUS AND HAD A MASS SCORE OF 4. SHE REQUESTED AND WAS GIVEN HYDROXYZINE, AND WENT BACK TO BED. THE MEDICATION WAS EFFECTIVE, EVIDENCED BY PATIENT RESTING QUIETLY IN BED WITH EYES CLOSED AND RESPIRATIONS CONFIRMED FOR THE REMAINDER OF THE SHIFT. CONTINUING TO MONITOR FOR SAFETY WITH Q15 MINUTE CHECKS.
[2025-03-06 07:25] VITALS: BP 103/75
--- NOTE | 2025-03-06 11:18 | NUR ---
IMPORTANT DISCHARGE INFORMATION PATIENT TO BE DISCHARGED TODAY. SHE WILL BE DISCHARGED TO THE [facility] IN [place] AROUND 4:30PM. [facility] WILL BE PICKING HER UP FOR TRANSPORT. THEIR NUMBER IS . ALL PARTIES VERBALIZE AN UNDERSTANDING. FOLLOW UP WITH NEW PCP DR. LEIVA AT THE [facility] ON SUNDAY, AT 10:30AM. REFERRALS PLACED FOR MENTAL HEALTH SERVICES AND WOMENS HEALTH. FOLLOW UP WITH [facility] FOR CONTINUED MENTAL HEALTH SERVICES AND OR CRISIS SERVICES. PHARMACY: [facility]
[2025-03-06] MEDS ORDERED: RISP2 PO ×2 (13:42)
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
--- NOTE | 2025-03-06 17:18 | NUR ---
DISCHARGE SUMMARY PT DC FROM [facility] AT 1703 VIA [facility] TO OLGA ANDERSON AND THEN JACLYN EARL PER PT REQUEST. PT GIVEN A DISCHARGE BAG WITH SNACKS AND ALL OF HER BELONGINGS. STATED UNDERSTANDING OF THE D/C PAPERWORK AND SCHEDULED APPOINTMENT
[2025-03-09] MEDS ORDERED: Estradiol 0.025 MG/24 Patch TOP SCH (09:00)
== END 2025-03-06 15:03 | disposition home or self-care (01) | DRG 885 ==
LOC: BHU 14:48
PROVIDERS: ADMIT Psychiatry & Neurology Psychiatry
DX: F20.9 Schizophrenia, unspecified (principal); F17.290 Nicotine dependence, other tobacco product, uncomplicated; F12.90 Cannabis use, unspecified, uncomplicated; Z88.8 Allergy status to other drugs, medicaments and biological substances; Z79.899 Other long term (current) drug therapy; Z79.1 Long term (current) use of non-steroidal anti-inflammatories (NSAID); Z91.51 Personal history of suicidal behavior; Z90.89 Acquired absence of other organs; Z23 Encounter for immunization
CPT/HCPCS: 36415; 80061; 83036; 96372; A9270; J1200; J1630; J2060